=== PATIENT | male | born 1965 | race Caucasian/White ===

== ENCOUNTER 2017-05-06 09:35 | Emergency (ER) | payer MEDICAID ==
[2012-05-19 03:32] VITALS: BMI 29.8
[2017-05-06 11:08] LABS: UDS - AMPHET POSITIVE QUAL (NEGATIVE); UDS - BARB NEGATIVE QUAL (NEGATIVE); UDS - BENZO NEGATIVE QUAL (NEGATIVE); UDS - COCAINE NEGATIVE QUAL (NEGATIVE); UDS - METH NEGATIVE QUAL (NEGATIVE); UDS - OPIATE NEGATIVE QUAL (NEGATIVE); UDS - PCP NEGATIVE QUAL (NEGATIVE); UDS - THC POSITIVE QUAL (NEGATIVE)
[2017-05-06 11:10] LABS: APPEARANCE CLEAR (CLEAR); BILIRUBIN NEGATIVE (NEGATIVE); COLOR YELLOW (YELLOW); GLUCOSE NEGATIVE (NEGATIVE); KETONE NEGATIVE (NEGATIVE); LEUKOCYTE ESTERASE NEGATIVE (NEGATIVE); NITRITE NEGATIVE (NEGATIVE); PROTEIN NEGATIVE (NEGATIVE); SPECIFIC GRAVITY 1.015 (1.005-1.020); UROBILINOGEN NORMAL (NORMAL); WHITE CELLS - URINE OCC /hpf (0-5)
[2017-05-06 11:11] LABS: BACTERIA FEW /hpf (NONE SEEN); CALCIUM OXALATE CRYSTALS 0-5 /hpf (NONE SEEN); EPITHELIAL CELLS OCC /hpf (0-5); RED CELLS - URINE OCC /hpf (0-5)
[2017-05-06 11:12] LABS: APTT 33.2 SECONDS (22.8-39.4); INR 1.02 (0.85-1.17); PROTIME 13.3 SECONDS (11.6-15.0)
[2017-05-06 11:28] LABS: BASOPHILS 0 % (0-2); EOSINOPHILS 0.5 % (0-7); HEMATOCRIT 42.5 % (42.0-54.0); IMMATURE GRANULOCYTES 0.2 % (0-5); LYMPHOCYTES 9.4 % (15-50); MCH 31.6 pg (26.0-34.0); MCHC 35.3 g/dL (31.0-37.0); MCV 89.7 fL (80.0-100.0); MEAN PLATELET VOLUME 10.1 fL (7.4-10.4); MONOCYTES 7.5 % (2-11); NEUTROPHILS 82.4 % (40-80); PLATELET COUNT 205 10x3/uL (130-400); RBC 4.74 10x6/uL (4.20-6.10); RDW 13.1 % (11.5-14.5); WBC 9.2 10x3/uL (4.8-10.8)
[2017-05-06 11:42] LABS: ALBUMIN 3.2 g/dL (3.4-5.0); ALKALINE PHOSPHATASE 102 U/L (46-116); ALT (SGPT) 20 U/L (10-68); BILIRUBIN - TOTAL 0.37 mg/dL (0.2-1.3); CALC OSMOLALITY 275 mosm/kg (275-300); CALCIUM 7.8 mg/dL (8.5-10.1); CARBON DIOXIDE 26.7 mmol/L (21.0-32.0); CHLORIDE - SERUM 103 mmol/L (98-107); CREATININE - SERUM 0.9 mg/dL (0.6-1.3); GLUCOSE 109 mg/dL (74-106); POTASSIUM - SERUM 4.1 mmol/L (3.5-5.1); PROTEIN - SERUM 6.5 g/dL (6.4-8.2); SODIUM 138 mmol/L (136-145); UREA NITROGEN 11 mg/dL (7-18); eGFR NON AFRICAN AMERICAN > 90 mL/min (90-120)
[2017-05-08 11:17] LABS: PSEUDOCHOLINESTERASE 2492 IU/L (1801-3537)
== END 2017-05-06 12:30 | disposition home or self-care (01) ==
LOC: D.ER 09:35
PROVIDERS: Emergency Medicine; Nurse Practitioner Family
DX: R10.9 Unspecified abdominal pain (principal); R11.10 Vomiting, unspecified; J44.9 Chronic obstructive pulmonary disease, unspecified; I10 Essential (primary) hypertension; I45.10 Unspecified right bundle-branch block; R19.7 Diarrhea, unspecified; R68.83 Chills (without fever); R53.83 Other fatigue; M79.1 Myalgia; F17.200 Nicotine dependence, unspecified, uncomplicated

== ENCOUNTER 2017-06-04 10:02 | Emergency (ER) | payer MEDICAID ==
[2012-05-19 03:32] VITALS: BMI 29.8
== END 2017-06-04 12:02 | disposition home or self-care (01) ==
LOC: D.ER 10:02
DX: T65.91XA Toxic effect of unspecified substance, accidental (unintentional), initial encounter (principal); T26.92XA Corrosion of left eye and adnexa, part unspecified, initial encounter; Y93.89 Activity, other specified; Y92.89 Other specified places as the place of occurrence of the external cause; J44.9 Chronic obstructive pulmonary disease, unspecified; I10 Essential (primary) hypertension; F17.200 Nicotine dependence, unspecified, uncomplicated

== ENCOUNTER 2017-06-08 18:53 | Emergency (ER) | payer MEDICAID ==
[2012-05-19 03:32] VITALS: BMI 29.8
[2017-06-08 20:23] LABS: BASOPHILS 0.1 % (0-2); EOSINOPHILS 1.4 % (0-7); HEMATOCRIT 42.4 % (42.0-54.0); IMMATURE GRANULOCYTES 0.2 % (0-5); LYMPHOCYTES 19.7 % (15-50); MCH 32.1 pg (26.0-34.0); MCHC 35.4 g/dL (31.0-37.0); MCV 90.6 fL (80.0-100.0); MEAN PLATELET VOLUME 9.8 fL (7.4-10.4); MONOCYTES 6.5 % (2-11); NEUTROPHILS 72.1 % (40-80); RBC 4.68 10x6/uL (4.20-6.10); RDW 12.8 % (11.5-14.5); WBC 13.5 10x3/uL (4.8-10.8)
[2017-06-08 20:44] LABS: ALBUMIN 3.7 g/dL (3.4-5.0); ANION GAP 12.9 mmol/L (8-16); BILIRUBIN - TOTAL 0.24 mg/dL (0.2-1.3); CALCIUM 9.1 mg/dL (8.5-10.1); CARBON DIOXIDE 26.5 mmol/L (21.0-32.0); CREATININE - SERUM 1.4 mg/dL (0.6-1.3); POTASSIUM - SERUM 4.4 mmol/L (3.5-5.1); PROTEIN - SERUM 7.5 g/dL (6.4-8.2); URIC ACID 5.9 mg/dL (2.6-7.2)
[2017-06-08 20:45] LABS: PLATELET COUNT 279 10x3/uL (130-400)
== END 2017-06-08 21:49 | disposition home or self-care (01) ==
LOC: D.ER 18:53
PROVIDERS: Physician Assistant Medical
DX: I10 Essential (primary) hypertension (principal); M79.671 Pain in right foot; F17.200 Nicotine dependence, unspecified, uncomplicated

== ENCOUNTER 2017-09-14 17:42 | Emergency (ER) | payer MEDICAID ==
[2012-05-19 03:32] VITALS: BMI 29.8
== END 2017-09-14 19:39 | disposition home or self-care (01) ==
LOC: D.ER 17:42
DX: S76.912A Strain of unspecified muscles, fascia and tendons at thigh level, left thigh, initial encounter (principal); X58.XXXA Exposure to other specified factors, initial encounter; Y93.89 Activity, other specified; Y92.89 Other specified places as the place of occurrence of the external cause; F17.200 Nicotine dependence, unspecified, uncomplicated; I10 Essential (primary) hypertension

== ENCOUNTER 2018-04-16 21:26 | Emergency (ER) | payer MEDICAID ==
[~2018-04-16] VITALS: Ht 170.2 cm; Wt 95.5 kg
[2018-04-16 21:36] VITALS: Ht 170.2 cm; Wt 95.5 kg
[2018-04-16] MEDS ORDERED: KEFLEX500 MG PO (22:04)
[2018-04-16 22:41] VITALS: BP 213/134
== END 2018-04-16 22:43 | disposition home or self-care (01) ==
LOC: D.ER 21:26
DX: S51.841A Puncture wound with foreign body of right forearm, initial encounter (principal); X58.XXXA Exposure to other specified factors, initial encounter; Y93.89 Activity, other specified; Y92.89 Other specified places as the place of occurrence of the external cause

== ENCOUNTER 2019-01-23 17:37 | Observation (INO) | payer MEDICAID ==
[~2019-01-23] VITALS: Ht 170.2 cm; Wt 90.9 kg
--- NOTE | ~2019-01-23 | HEMODYNAMI ---
PATIENT:LEANNE TRACY MEDICAL RECORD: [id number] : 61 [id number] ADMISSION DATE: 01/23/19 Generatedon:01/24/20198:54 Patient name: LEANNE TRACY Patient #: [id number] SSN: : 1965 Date of study: 01/24/2019 Page: Of Hemodynamic Procedure Report Patient Data Patient Demographics Procedure consent was obtained First Name: LEANNE Gender: Male Last Name: DEMARCUS : 1965 [facility] Initial: S Age: 53 year(s) Patient #: [id number] Race: Unknown Additional ID: [id number] Contact details [address]: [address] [place] [address] State: [place] City: [place] Zip code: [address] Past Medical History Allergies Allergen Reaction Date Comments Reported Statins 01/24/2019 Admission Admission Data Admission Date: 01/23/2019 Admission Time: 19:43 Admit Source: Other Room #: D.2121 Lab Results Lab Result Date: 01/24/2019 Lab Result Time: 0:00 Biochemistry Name Units Result Min Max BUN mg/dl 22 --(----)-* 7 18 Creatinine mg/dl 1.4 --(----)*- 0.6 1.3 CBC Name Units Result Min Max Hemoglobin g/dl 14.7 --(-*--)-- 13.5 17.5 Procedure Procedure Types Cath Procedure Diagnostic Procedure LHC LHC w/Coronaries w/Grafts PCI Procedure Coronary Stent Coronary Stent Initial Procedure Description Procedure Date Procedure Date: 01/24/2019 Procedure Start Time: 8:22 Procedure End Time: 8:53 Procedure Staff Name Function Marlo Duque MD Performing Physician Javon Levi RT Monitor Jelly Nye RT Scrub Hero Don RN Nurse Procedure Data Cath Procedure Fluoroscopy Diagnostic fluoroscopy Total fluoroscopy Time: 9 time: 9 min min Diagnostic fluoroscopy Total fluoroscopy dose: dose: 1837 mGy 1837 mGy Contrast Material Contrast Material Type Amount (ml) Isovue 370 151 Entry Location Entry Primary Successful Side Size Upsize Upsize Entry Closure Succes sful Closure Location (Fr) 1 (Fr) 2 (Fr) Remarks Device Remarks Femoral Right 5 Fr 6 Fr artery Short Diagnostic catheters Device Type Used For End Catheter Placement MULTIPACK JL 4.0 5Fr Left Coronary catheter Angiography DIAGNOSTIC AR MOD 5Fr SVG Angiography Catheter ([id number]) DIAGNOSTIC IM 5Fr SVG Angiography catheter ([id number]) MULTIPACK Pigtail 5 Fr LV Angiography catheter Procedure Complications No complications Procedure Medications Medication Administration Route Dosage 0.9% NaCl I.V. 100 ml/hr Oxygen etCO2 Nasal cannula 2 l/min Heparin Flush Bag added to field 2 bags (1000units/500ml NS) Lidocaine 2% added to field 20 Versed I.V. 2 mg Fentanyl I.V. 100 mcg Heparin Bolus I.V. 9500 units Plavix P.O. 600 mg Hemodynamics Rest HGB: 14.7 (g/dl) Heart Rate: 61 (bpm) Pressure Samples Time Site Value (mmHg) Purpose Heart Use Rate(bpm) 8:30 LV 178/5,36 EDP 72 8:30 LV 180/5,38 Snapshot 69 8:31 AO 180/108(137) Pullback 71 8:31 LV 183/7,28 Pullback 71 Gradients Valve Time Site 1 Site 2 Mean SEP/DFP Peak To Heart Use (mmHg) (sec/min) Peak Rate (mmHg) (bpm) Aortic 8:31 LV AO 15 8 3 71 183/7,28 180/108(137) Calculations Valve P-P Mean Valve Index Valve Source Name Gradient Area Flow (cm2) Aortic 3 15 3 15 Snapshots Pre Cath Intra NCS Post Cath Vital Signs Time Heart Resp SPO2 etCO2 NIBP (mmHg) Rhythm Pain Sedation Rate (ipm) (%) (mmHg) Status Level (bpm) 8:09:49 54 16 100 37.6 174/109(153) NSR 0 (11) 10(A) , No pain 8:14:13 71 17 100 16.5 173/107(145) NSR 0 (11) 10(A) , No pain 8:18:40 66 15 100 32.4 168/106(148) NSR 0 (11) 10(A) , No pain 8:23:04 71 16 100 23.3 160/115(134) NSR 0 (11) 10(A) , No pain 8:27:24 67 15 100 36.9 171/112(150) NSR 0 (11) 9(A) , No pain 8:31:48 71 14 100 37.6 183/114(157) NSR 0 (11) 9(A) , No pain 8:36:14 68 14 100 36.9 179/114(155) NSR 0 (11) 9(A) , No pain 8:40:43 69 15 100 35.4 170/116(146) NSR 0 (11) 9(A) , No pain 8:45:07 68 14 100 36.9 178/116(154) NSR 0 (11) 10(A) , No pain 8:49:35 71 15 100 25.6 178/114(159) NSR 0 (11) 10(A) , No pain Medications Time Medication Route Dose Verified Delivered Reason Notes Effectiveness by by 8:11:40 0.9% NaCl I.V. 100 Hero Hero Per physician ml/hr Arian Don RN RN 8:11:51 Oxygen etCO2 2 Hero Hero for low 02 sats Nasal l/min Arian Don cannula RN RN 8:12:02 Heparin Flush added 2 Hero Hero used for Bag to bags Arian Don procedure (1000units/500ml RN RN NS) 8:12:15 Lidocaine 2% added 20ml Hero Hero for local to vial Arian Don anesthetic RN RN 8:18:02 Versed I.V. 2 mg Hero Hero for sedation Arian Don RN RN 8:18:12 Fentanyl I.V. 100 Hero Hero for sedation mcg Arian Don RN RN 8:34:15 Heparin Bolus I.V. 9,500 Hero Hero for units Arian Don anticoagulation RN RN 8:50:36 Plavix P.O. 600 Hero Hero for mg Arian Don antiplatelet RN RN therapy Procedure Log Time Note 7:46:16 Admit Source: Other 7:46:39 Diagnostic Cath status Elective 7:46:40 Javon Levi RT(R) sent for patient. Start room use. 7:46:42 Time tracking: Regular hours (M-F 7:00 - 5:00) 7:46:46 Plan of Care:Hemodynamics will remain stable., Cardiac rhythm will remain stable., Comfort level will be maintained., Respiratory function will remain adequate., Patient/ family verbilizes understanding of procedure., Procedure tolerated without complication., Recovers from procedure without complications.. 7:53:37 Use device set Femoral Dx 7:53:39 ACIST Syringe (44406) opened to sterile field. 7:53:39 Bag Decanter (2002S) opened to sterile field. 7:53:40 Medline Cath Pack ([id number]) opened to sterile field. 7:53:40 DIAGNOSTIC WIRE .035 260cm J wire (536647) opened to sterile field. 7:53:41 ACIST Hand Control (75765) opened to sterile field. 7:53:42 ACIST Manifold (87866) opened to sterile field. 7:53:44 DIAGNOSTIC Multipack 5Fr catheter set (FO0617) opened to sterile field. 7:53:45 Tegaderm 4 x 4 (1626W) opened to sterile field. 7:53:46 SHEATH 5FR [place] (MZS402) opened to sterile field. 8:01:51 Patient received from PCU to CCL 2 Alert and oriented. Tansferred to table in Supine position. 8:01:52 Warm blankets applied, and corey hugger turned on for patient comfort. 8:01:53 Correct patient and procedure confirmed by team. 8:01:54 Signed procedure consent form obtained from patient. 8:01:55 ECG and BP/O2 sat monitors applied to patient. 8:02:00 Full Disclosure recording started 8:08:35 Vital chart was started 8:10:12 Baseline sample Acquired. 8:10:14 Rhythm: sinus rhythm 8:10:20 H&P Date Dictated: 01/24/2019 Within 30 days and on chart.. 8:10:21 Pre-procedure instructions explained to patient. 8:10:21 Pre-op teaching completed and patient verbalized understanding. 8:10:24 Family in patients room. 8:10:51 Patient allergic to Statins 8:11:11 Is the patient allergic to Iodine/contrast media? No. 8:11:13 Is patient on blood thinner?No 8:11:15 Patient diabetic? No. 8:11:16 ----Pre-sedation anethsthesia assessment.---- 8:11:21 Previous problem with sedation/anesthesia? No ? 8:11:24 Snore? Yes 8:11:26 Sleep apnea? No 8:11:27 Deviated septum? No 8:11:29 Opens mouth fully? Yes 8:11:30 Sticks out tongue? Yes 8:11:33 Airway obstruction? No ? 8:11:36 Dentures? No ? 8:11:40 0.9% NaCl 100 ml/hr I.V. was administered by Hero Don RN; Per physician; 8:11:42 Pre procedure: right dorsailis pedis pulse 1+ Palpable, but thready & weak; easily obliterated 8:11:44 Patient pain scale 0/10 ?. 8:11:51 Oxygen 2 l/min etCO2 Nasal cannula was administered by Hero Don RN; for low 02 sats; 8:12:02 Heparin Flush Bag (1000units/500ml NS) 2 bags added to field was administered by Hero Don RN; used for procedure; 8:12:15 Lidocaine 2% 20ml vial added to field was administered by Hero Don RN; for local anesthetic; 8:14:16 IV patent on arrival in left antecubital with 0.9% NaCl at [facility]. 8:15:07 Lab Result : BUN 22 mg/dl 8:15:07 Lab Result : Creatinine 1.4 mg/dl 8:15:07 Lab Result : Hemoglobin 14.7 g/dl 8:15:10 Lab results completed and on chart. 8:15:14 Right groin area was prepped with chlora-prep and draped in sterile fashion 8:15:35 Alarms reviewed by R. N. 8:15:35 Sharps counted by scrub and verified by R.N. 8:15:36 Physician arrived 8:15:37 --------ALL STOP TIME OUT------ 8:15:41 Final Timeout: patient, procedure, and site verified with staff and physician. All members of the team are in agreement. 8:15:42 Right groin site verified by team. 8:15:47 Maximum allowable Isovue 370 dose 300ml. Physician notified. (300ml for normal creatinines. For patients with creatinine of 1.7 or higher multiply weight(kg) x 5 divided by creatinine.) 8:15:51 Fire Safety Assessment: A--An alcohol-based skin anteseptic being used preoperatively., C--Open oxygen or nitrous oxide is being used., D--An ESU, laser, or fiber-optic light is being used. 8:15:55 Physical assessment completed. ASA score P 2 - A patient with mild systemic disease as per Marlo Duque MD. 8:15:58 Sedation plan: IV Moderate Sedation Medication:Versed, Fentanyl 8:18:02 Versed 2 mg I.V. was administered by Hero Don RN; for sedation; 8:18:12 Fentanyl 100 mcg I.V. was administered by Hero Don RN; for sedation; 8:22:06 Procedure started. 8:22:19 Local anesthetic to right femoral artery with Lidocaine 2% by Marlo Duque MD.INITIAL ACCESS ONLY 8:22:27 A 5 Fr sheath was inserted into the Right Femoral artery 8:23:38 Zero performed for pressure channel P1 8:23:41 Zero performed for pressure channel P1 8:23:58 A MULTIPACK JL 4.0 5Fr catheter was advanced over the wire and used for Left Coronary Angiography. 8:24:02 LCA angiography performed. 8:25:26 Catheter exchanged over wire. 8:25:46 A DIAGNOSTIC AR MOD 5Fr Catheter ([id number]) was advanced over the wire and used for SVG Angiography. 8:25:59 RCA angiography performed. 8:27:22 SVG to RCA angiography performed. 8:27:49 Catheter exchanged over wire. 8:27:55 A DIAGNOSTIC IM 5Fr catheter ([id number]) was advanced over the wire and used for SVG Angiography. 8:28:06 COLE to LAD angiography performed. 8:29:21 Catheter exchanged over wire. 8:29:35 A MULTIPACK Pigtail 5 Fr catheter was advanced over the wire and used for LV Angiography. 8:30:12 LV angiography performed. 8:30:31 LV gram done using LORA 8:30:43 EF : 45 % 8:30:54 Catheter exchanged over wire. 8:31:54 SHEATH 6FR [place] (XBG301) opened to sterile field. 8:31:55 TUBING High Pressure Extension Tubing (Neto) ([id number]) opened to sterile field. 8:31:55 BMW 300cm [place] 2 J wire ([id number]) opened to sterile field. 8:31:56 INFLATOR Merit BasixCompak (UP4821) opened to sterile field. 8:31:57 GUIDE 6FR EBU 3.5 catheter ([id number]) opened to sterile field. 8:33:22 Sheath upsized to a 6 Fr Short. 8:33:23 6 Fr EBU 3.5 guide catheter was inserted over the wire 8:33:54 BMW2 wire advanced. 8:34:15 Heparin Bolus 9,500 units I.V. was administered by Hero Don RN; for anticoagulation; 8:39:48 Inflate balloon Inflation number: 1 A EMERGE OTW 2.5 x 15 balloon ([id number]) was prepped and advanced across the 1st Ob Agatha, then inflated to 10 CATHIE for 0:14 (min:sec). 8:40:34 Balloon removed over the wire. 8:43:48 Place stent Inflation Number: 1 A INTEGRITY OTW 3.0 X 18 stent ([id number]) was prepped and advanced across the 1st Ob Marg1. The stent was deployed at 12 CATHIE for 0:15 (min:sec). 8:44:40 Stent catheter was removed intact over wire. 8:45:00 Procedure type changed to Cath procedure, Diagnostic procedure, LHC, LHC w/Coronaries w/Grafts, PCI procedure, Coronary Stent, Coronary Stent Initial 8:47:04 Place stent Inflation Number: 2 A INTEGRITY OTW 3.5 X 12 stent ([id number]) was prepped and advanced across the 1st Ob Agatha. The stent was deployed at 13 CATHIE for 0:13 (min:sec). 8:47:31 Stent catheter was removed intact over wire. 8:48:30 Wire removed. 8:48:31 Guide catheter removed. 8:48:46 EXOSEAL 6Fr (EX600) opened to sterile field. 8:49:47 Procedure ended.(Physican Out) 8:50:06 Fluoroscopy time 09.00 minutes. 8:50:31 Fluoroscopy dose: 1837 mGy 8:50:31 Flurop Dose total: 1837 8:50:36 Plavix 600 mg P.O. was administered by Hero Don RN; for antiplatelet therapy; 8:50:37 Contrast amount:Isovue 370 151ml. 8:50:38 Sharps counted by scrub and verified by R.N. 8:50:39 Insertion/operative site no bleeding no hematoma. 8:50:43 Post-op/insertion site Right Femoral artery dressed using a 4 x 4 and Tegaderm. 8:50:48 Post right femoral artery:stable 8:50:58 Post Procedure Pulses reassessed and unchanged 8:51:02 Post procedure: right dorsailis pedis pulse 2+ Normal; easily identifiable; not easily obliterated. 8:51:06 Post-procedure physical assessment completed. ASA score P 2 - A patient with mild systemic disease as per Marlo Duque MD. 8:51:11 Post procedure rhythm: sinus rhythm 8:51:19 Post procedure instruction explained to patient.Patient verbalizes understanding. 8:51:21 Procedure and supply charges have been captured, reviewed, submitted and are correct. 8:52:40 Procedure Complication : No complications 8:52:42 Vital chart was stopped 8:52:43 See physician's report for complete and final results. 8:52:48 Report given to PCU. 8:52:50 Patient transfered to PCU with Stretcher. 8:53:50 Procedure ended. 8:53:50 Full Disclosure recording stopped 8:53:59 ACC-PCI Only Patient was given prescriptions, or instructed by Marlo Duque MD to start/continue the following medications upon discharge: Plavix 8:54:00 End room use (Document Last) Intervention Summary Intervention Notes Time ActionType Lesion and Equipment Action# Pressure Duration Attributes Used 8:39:48 Inflate 1st Ob Agatha EMERGE OTW 1 10 00:14 balloon 2.5 x 15 balloon ([id number]) 8:43:48 Place stent 1st Ob INTEGRITY 1 12 00:15 Marg1 OTW 3.0 X 18 stent ([id number]) 8:47:04 Place stent 1st Ob Agatha INTEGRITY 2 13 00:13 OTW 3.5 X 12 stent ([id number]) Device Usage Item Name Manufacture Quantity Catalog Number Hospital Part Current Min imal Lot# / Charge Number Stock Stock Serial# Code ACIST Acist 1 05760 077798 218632 675776 20 Syringe [employer] (94660) [employer] Bag Decanter Microtek 1 017360 90452 451124 5 (2002S) Medical Inc. Medline Cath Medline 1 [id number] 726711 64216 763896 5 Pack ([id number]) DIAGNOSTIC St [place] 1 331467 415872 137607 617470 30 WIRE .035 260cm J wire (908867) ACIST Hand Acist 1 15310 272421 445407 185111 5 Control Medical (50233) Systems Inc ACIST Acist 1 76684 890472 297202 320054 5 Manifold Medical (76188) Systems Inc DIAGNOSTIC Cardinal 1 QM3020 409762 93279 539037 30 Multipack Health 5Fr catheter set (LM5121) Tegaderm 4 x 3M 1 1626W 725930 406866 987132 5 4 (1626W) SHEATH 5FR Terumo 1 SPQ939 051635 998025 591382 5 [place] (BUT642) MULTIPACK JL Cardinal 1 229100 5 4.0 5Fr Health catheter DIAGNOSTIC Cardinal 1 [id number] 356368 110689 472443 15 AR MOD 5Fr Health Catheter (128307K) DIAGNOSTIC Cardinal 1 [id number] 946162 629526 144651 5 IM 5Fr Health catheter (458489E) MULTIPACK Cardinal 1 813299 5 Pigtail 5 Fr Health catheter SHEATH 6FR Terumo 1 UPU489 863979 585538 127351 40 [place] (QTU424) TUBING High Merit 1 GT1092T 689442 02784 588662 10 Pressure Medical Extension Tubing (Duque) (VS3943F) BMW 300cm [place] 1 [id number] 256652 262907 613704 5 [place] 2 Vascular J wire (3268258T) INFLATOR Merit 1 GV2295 350178 124868 890869 15 [facility] Medical BasixCompak (RU5794) GUIDE 6FR Medtronic 1 JV8WUS14 345554 83413 585575 3 EBU 3.5 catheter ([id number]) EMERGE OTW [place] 1 [id number] 169914 545436 504133 5 [id number] 2.5 x 15 Scientific balloon ([id number]) INTEGRITY Medtronic 1 [id number] 532777 377999 479482 4 [id number] OTW 3.0 X 18 stent ([id number]) INTEGRITY Medtronic 1 [id number] 093885 860326 942563 2 [id number] OTW 3.5 X 12 stent ([id number]) EXOSEAL 6Fr Cardinal 1 EX600 227414 710150 333604 10 (EX600) Health Signature Audit [place] Stage Time Signature Unsigned Intra-Procedure 01/24/2019 Javon LEON(Mikal) 8:54:52 AM Signatures Monitor : Javon LEON Signature : Date : Time : [address] [id number]
[~2019-01-23 17:37] MED LIST: KEFLEX500 MG PO
[2019-01-23 17:58] VITALS: BP 183/126
[2019-01-23 18:06] VITALS: BP 166/117
[2019-01-23 18:06] LABS: BASOPHILS 0.2 % (0-2); EOSINOPHILS 5.2 % (0-7); HEMATOCRIT 40.9 % (42.0-54.0); HEMOGLOBIN 14.7 g/dL (13.5-17.5); IMMATURE GRANULOCYTES 0.2 % (0-5); LYMPHOCYTES 31.5 % (15-50); MCH 31.5 pg (26.0-34.0); MCHC 35.9 g/dL (31.0-37.0); MCV 87.8 fL (80.0-100.0); MEAN PLATELET VOLUME 10.4 fL (7.4-10.4); MONOCYTES 7.3 % (2-11); NEUTROPHILS 55.6 % (40-80); PLATELET COUNT 299 10x3/uL (130-400); RBC 4.66 10x6/uL (4.20-6.10)
[2019-01-23 18:16] LABS: INR 1.05 (0.85-1.17); PROTIME 13.2 SECONDS (11.6-15.0)
[2019-01-23 18:25] VITALS: BP 175/118
[2019-01-23 18:37] LABS: ALBUMIN 3.5 g/dL (3.4-5.0); ALKALINE PHOSPHATASE 94 U/L (46-116); BILIRUBIN - TOTAL 0.69 mg/dL (0.2-1.3); CALCIUM 8.6 mg/dL (8.5-10.1); CARBON DIOXIDE 27.9 mmol/L (21.0-32.0); CREATINE KINASE 281 UL (21-232); CREATININE - SERUM 1.4 mg/dL (0.6-1.3); GLUCOSE 125 mg/dL (74-106); PROTEIN - SERUM 8.1 g/dL (6.4-8.2); UREA NITROGEN 23 mg/dL (7-18); eGFR NON AFRICAN AMERICAN 56 mL/min (90-120)
[2019-01-23 19:11] LABS: POTASSIUM - SERUM 3.7 mmol/L (3.5-5.1)
[2019-01-23 19:12] LABS: ALT (SGPT) 21 U/L (10-68); CALC OSMOLALITY 285 mosm/kg (275-300); CHLORIDE - SERUM 105 mmol/L (98-107); SODIUM 141 mmol/L (136-145)
[2019-01-23 19:32] VITALS: BP 157/91
[2019-01-23 23:34] VITALS: Ht 170.2 cm; Wt 90.9 kg
[2019-01-24 00:30] VITALS: BP 170/104
[2019-01-24 03:48] VITALS: BP 162/107
[2019-01-24 06:49] LABS: ANION GAP 12.5 mmol/L (8-16); CALCIUM 8.2 mg/dL (8.5-10.1); CARBON DIOXIDE 27.1 mmol/L (21.0-32.0); CREATININE - SERUM 1.4 mg/dL (0.6-1.3); POTASSIUM - SERUM 3.6 mmol/L (3.5-5.1)
[2019-01-24 07:05] LABS: BASOPHILS 0.3 % (0-2); EOSINOPHILS 3.1 % (0-7); HEMATOCRIT 40.7 % (42.0-54.0); HEMOGLOBIN 14.2 g/dL (13.5-17.5); IMMATURE GRANULOCYTES 0.2 % (0-5); LYMPHOCYTES 24.5 % (15-50); MCH 30.9 pg (26.0-34.0); MCHC 34.9 g/dL (31.0-37.0); MCV 88.5 fL (80.0-100.0); MEAN PLATELET VOLUME 10.7 fL (7.4-10.4); MONOCYTES 9.3 % (2-11); NEUTROPHILS 62.6 % (40-80); PLATELET COUNT 283 10x3/uL (130-400); RDW 12.8 % (11.5-14.5)
[2019-01-24 07:11] LABS: WBC 12.1 10x3/uL (4.8-10.8)
[2019-01-24] MEDS ORDERED: BAYER CHEWABLE81 MG PO (09:44)
[2019-01-24] MEDS ORDERED: PLAVIX75 MG PO (09:44)
== END 2019-01-24 12:57 | disposition home or self-care (01) ==
LOC: D.ER 17:37 → OBSVTIME 19:43 → D.CLR 19:43 → D.M2 19:43 → D.CLR 01-24 09:03
PROVIDERS: Family Medicine; ADMIT Internal Medicine Cardiovascular Disease; ATTEND Internal Medicine Cardiovascular Disease
DX: I21.4 Non-ST elevation (NSTEMI) myocardial infarction (principal); I25.10 Atherosclerotic heart disease of native coronary artery without angina pectoris; I10 Essential (primary) hypertension

== ENCOUNTER 2020-05-03 18:44 | Emergency (ER) | payer MEDICAID ==
[~2020-05-03] VITALS: Ht 170.2 cm; Wt 90.9 kg
[~2020-05-03 18:44] MED LIST changes: +BAYER CHEWABLE81 MG PO; +PLAVIX75 MG PO
[2020-05-03 19:02] VITALS: Ht 170.2 cm; Wt 90.9 kg
[2020-05-03] MEDS ORDERED: LISINOPRIL10 MG PO (19:07)
[2020-05-03 20:29] LABS: BASOPHILS 0.3 % (0-2); EOSINOPHILS 3.1 % (0-7); HEMATOCRIT 42.1 % (42.0-54.0); HEMOGLOBIN 14.6 g/dL (13.5-17.5); IMMATURE GRANULOCYTES 0.4 % (0-5); LYMPHOCYTES 22.4 % (15-50); MCH 31.3 pg (26.0-34.0); MCHC 34.7 g/dL (31.0-37.0); MCV 90.3 fL (80.0-100.0); MEAN PLATELET VOLUME 9.6 fL (7.4-10.4); MONOCYTES 8.4 % (2-11); NEUTROPHILS 65.4 % (40-80); PLATELET COUNT 290 10x3/uL (130-400); RBC 4.66 10x6/uL (4.20-6.10); RDW 12.8 % (11.5-14.5); WBC 11.4 10x3/uL (4.8-10.8)
[2020-05-03 20:43] LABS: CALC OSMOLALITY 282 mosm/kg (275-300); CALCIUM 10.2 mg/dL (8.5-10.1); CARBON DIOXIDE 24.3 mmol/L (21.0-32.0); CHLORIDE - SERUM 105 mmol/L (98-107); GLUCOSE 100 mg/dL (74-106); POTASSIUM - SERUM 3.8 mmol/L (3.5-5.1); SODIUM 139 mmol/L (136-145); UREA NITROGEN 26 mg/dL (7-18); eGFR NON AFRICAN AMERICAN 37 mL/min (90-120)
[2020-05-03 20:53] LABS: BILIRUBIN NEGATIVE (NEGATIVE); GLUCOSE NEGATIVE (NEGATIVE); KETONE NEGATIVE (NEGATIVE); NITRITE NEGATIVE (NEGATIVE); UROBILINOGEN NORMAL (NORMAL)
[2020-05-03 20:56] LABS: ALBUMIN 3.9 g/dL (3.4-5.0); ALKALINE PHOSPHATASE 118 U/L (30-120); ALT (SGPT) 23 U/L (10-68); BILIRUBIN - TOTAL 0.61 mg/dL (0.2-1.3); CREATINE KINASE 115 UL (21-232); PRO BNP 773 pg/mL (0-125); PROTEIN - SERUM 7.7 g/dL (6.4-8.2)
[2020-05-03 20:58] LABS: TROPONIN-I < 0.017 ng/mL (0.000-0.060)
[2020-05-03 21:02] LABS: UDS - AMPHET POSITIVE QUAL (NEGATIVE); UDS - BARB NEGATIVE QUAL (NEGATIVE); UDS - BENZO NEGATIVE QUAL (NEGATIVE); UDS - COCAINE NEGATIVE QUAL (NEGATIVE); UDS - OPIATE NEGATIVE QUAL (NEGATIVE); UDS - PCP NEGATIVE QUAL (NEGATIVE); UDS - THC POSITIVE QUAL (NEGATIVE)
[2020-05-03 21:42] VITALS: BP 128/74
== END 2020-05-03 21:42 | disposition home or self-care (01) ==
LOC: D.ER 18:44
PROVIDERS: Family Medicine
DX: R07.89 Other chest pain (principal); I10 Essential (primary) hypertension; Z95.1 Presence of aortocoronary bypass graft

== ENCOUNTER 2020-11-30 18:26 | Emergency (ER) | payer MEDICAID ==
[~2020-11-30] VITALS: Ht 170.2 cm; Wt 81.8 kg
[~2020-11-30 18:26] MED LIST changes: +LISINOPRIL10 MG PO
[2020-11-30 18:43] VITALS: BP 133/91; Ht 170.2 cm; Wt 81.8 kg
== END 2020-11-30 21:16 | disposition home or self-care (01) ==
LOC: D.ER 18:26
DX: M25.562 Pain in left knee (principal); I10 Essential (primary) hypertension; K21.9 Gastro-esophageal reflux disease without esophagitis; N40.0 Benign prostatic hyperplasia without lower urinary tract symptoms; Z72.0 Tobacco use